=== PATIENT | male | born 1985 | race Caucasian/White ===

== ENCOUNTER 2016-09-11 15:25 | Emergency (ER) | payer OTHER ==
[~2016-09-11] VITALS: Ht 177.8 cm; Wt 74.8 kg
[2016-09-11 17:33] LABS: BASOPHILS % (AUTO) 1.1 % (0.0-2.0); EOSINOPHILS % (AUTO) 0.4 % (0.0-3.0); LYMPHOCYTES % (AUTO) 37.8 % (20.0-45.0); MEAN CORPUSCULAR HEMOGLOBIN 32.4 PG (27.0-31.0); MEAN CORPUSCULAR HGB CONC 38.2 G/DL (32.0-36.0); MEAN CORPUSCULAR VOLUME 85 FL (80-99); MEAN PLATELET VOLUME 6.7 FL (6.5-10.1); NEUTROPHILS % (AUTO) 50.7 % (45.0-75.0); PLATELET COUNT 283 K/UL (150-450); RED BLOOD COUNT 5.61 M/UL (4.70-6.10); RED CELL DISTRIBUTION WIDTH 12.2 % (11.6-14.8); WHITE BLOOD COUNT 6.8 K/UL (4.8-10.8)
[2016-09-11 17:48] LABS: ACETAMINOPHEN < 10 ug/mL (10-30); ALANINE AMINOTRANSFERASE 61 U/L (3-41); ALBUMIN/GLOBULIN RATIO 1.1 (1.0-2.7); ALCOHOL < 10 mg/dL; ANION GAP 15 (5-15); ASPARTATE AMINO TRANSFERASE 54 U/L (5-40); CALCIUM 9.5 mg/dL (8.6-10.2); CARBON DIOXIDE 26 mEQ/L (20-30); CHLORIDE 98 mEQ/L (98-107); GLOMERULAR FILTRATION RATE > 60 mL/min (>60); HEMOLYSIS 13; POTASSIUM 3.5 mEQ/L (3.4-4.9); SODIUM 139 mEQ/L (135-145)
[2016-09-11 18:27] VITALS: BP 142/96
--- NOTE | 2016-09-11 19:03 | Emergency Room Report ---
History of Present Illness General Chief Complaint: Behavioral Complaint Source: EMS Present Illness HPI 31 y/o male [place] police in custody for 5150 for hurting himself. States that this morning the patient had finished using meth with his female partner and was "cuddling" with each other when he decided to get cigarette while she was sleeping as they had both been up for the past 3 days w/o rest due to smoking meth. States that when he came back, his partner was upset he had left her by herself in the street. States he had a can of marijuana that went missing and got upset. The patient then began cutting himself on his left forearm with a plastic razor blade and the partner called the resp ther believing the patient was trying to harm himself. The patient states that he is a cutter and has been since he was 7 years old stating he would cut himself to get his mothers attention as she would always be concerned he had been injured. Patient states he is not suicidal but was very emotional and did not know any other way to express himself to his partner and did not try to intentionally cut a vein or artery stating his cuts were only very superficial. Denies any SI, HI, AH or VH. Allergies: Coded Allergies: No Known Allergies (Unverified , 09/11/16) Patient History Past Medical History: see triage record Past Surgical History: unable to obtain Pertinent Family History: unable to obtain Social History: Reports: alcohol use, drug use, smoking Reviewed Nursing Documentation: PMH: Agreed, PSxH: Agreed Nursing Documentation-PMH Hx Hypertension: Yes History Of Psychiatric Problem: Yes Review of Systems All Other Systems: negative except mentioned in HPI Physical Exam Vital Signs Date Time Temp Pulse Resp B/P Pulse Ox O2 Delivery O2 Flow Rate FiO2 09/11/16 15:22 96.4 121 16 142/96 98 Room Air Sp02 EP Interpretation: reviewed, normal General Appearance: no apparent distress, alert, GCS 15, non-toxic Head: normocephalic, atraumatic Eyes: bilateral eye PERRL, bilateral eye normal inspection ENT: normal ENT inspection Respiratory: chest non-tender, lungs clear, normal breath sounds, speaking full sentences Cardiovascular #1: regular rate, rhythm, no edema Musculoskeletal: back normal, gait/station normal, normal range of motion Neurologic: alert, oriented x3, responsive, motor strength/tone normal, sensory intact, speech normal Psychiatric: judgement/insight normal, memory normal, no suicidal/homicidal ideation, anxious, other - tearful / labile Suicide Risk Assessment: Suicidal Ideation: No Had intent to initiate attempt: No Pt's plan for suicide attempt: No Has means to complete attempt: No Skin: normal color, no rash, warm/dry, well hydrated, laceration - multiple very superficial lacerations / abrasions on left forearms Medical Decision Making PA Attestation Dr. Armenta is my supervising physician with whom patient management has been discussed with. Diagnostic Impression: Primary Impression: Behavioral disorder Additional Impressions: Deliberate self-cutting Methamphetamine dependence Methamphetamine use Substance abuse ER Course Pt. presents to the ED c/o 5150 hold for cutting himself Ddx considered but are not limited to suicide attempt, drug use, depression, schizophrenia, anxiety Vital signs: are WNL, pt. is afebrile H&PE are most consistent with cutting with drug use ORDERS: CBC, CMP, Tox Screen, Meal Tray ED INTERVENTIONS: PET team. DISCHARGE: Patient eloped prior to PET eval and medical clearance. There was no sitter and police did not provide any resource to enforce 5150. Last Vital Signs Date Time Temp Pulse Resp B/P Pulse Ox O2 Delivery O2 Flow Rate FiO2 09/11/16 15:22 96.4 121 16 142/96 98 Room Air Disposition: ELOPED Referrals: [facility],REFERRING (PCP) ROMEO MORRELL Sep 11, 2016 19:03
== END 2016-09-11 18:27 | disposition left against medical advice (07) ==
LOC: EDBD 15:25 → EMR 15:58
DX: F91.9 Conduct disorder, unspecified (principal); S51.812A Laceration without foreign body of left forearm, initial encounter; X78.8XXA Intentional self-harm by other sharp object, initial encounter; Y93.9 Activity, unspecified; Y92.9 Unspecified place or not applicable; F15.20 Other stimulant dependence, uncomplicated; F19.10 Other psychoactive substance abuse, uncomplicated; F17.200 Nicotine dependence, unspecified, uncomplicated; I10 Essential (primary) hypertension; Z86.59 Personal history of other mental and behavioral disorders; Z91.5 Personal history of self-harm
CPT/HCPCS: 36415; 80053; 80300; 80329; 85025; 99284

== ENCOUNTER 2016-09-11 20:26 | Emergency (ER) | payer OTHER ==
[~2016-09-11] VITALS: Ht 167.6 cm; Wt 63.5 kg
[2016-09-11 20:35] VITALS: BP 122/87
--- NOTE | 2016-09-11 20:42 | Emergency Room Report ---
History of Present Illness General Chief Complaint: Psychiatric complaint Source: Patient Present Illness HPI Patient is a 31-year-old male who presented after recently eloping from the hospital. Patient prior history of 5150 hold being placed by [employer]. The patient was the return to us by [employer]. Patient was noted be recently using methamphetamine. The history is limited by patient's agitation. Allergies: Coded Allergies: No Known Allergies (Unverified , 09/11/16) Patient History Past Medical History: see triage record Reviewed Nursing Documentation: PMH: Agreed, PSxH: Agreed Nursing Documentation-PMH Hx Hypertension: Yes Review of Systems All Other Systems: negative except mentioned in HPI Physical Exam Sp02 EP Interpretation: reviewed, normal General Appearance: alert/responsive, no apparent distress, GCS 15, non-toxic Head: atraumatic Eyes: PERRL, lids + conjunctiva normal ENT: hearing intact, no angioedema Neck: supple/symm/no masses, no meningismus Respiratory: effort normal, no wheezing, chest symmetrical Cardiovascular: regular rate, rhythm, no edema Cardiovascular #2: 2+ carotid (R), 2+ carotid (L), 2+ dorsalis pedis (R), 2+ dorsalis pedis (L) Gastrointestinal: non-tender, no mass, non-distended, no rebound/guarding, normal bowel sounds Musculoskeletal: gait & station normal, strength & tone normal, normal ROM, non -tender Neurologic: oriented x3, sensory intact, normal speech Psychiatric: memory normal, anxious Skin: no rash, well hydrated Lymphatic: normal inspection Medical Decision Making Diagnostic Impression: Primary Impression: Psychosis Additional Impression: Substance abuse ER Course Patient presented for agitation. Differential diagnoses include substance abuse , psychosis, bipolar disorder, depression, malingering. Patient laboratory testing done on prior visit. Urine drug screen was noted to be positive for amphetamine. The patient on a 5150 hold. The patient will be transferred to a psychiatric facility for further psychiatric management. Labs Test 09/11/16 21:00 Urine Opiates Screen Negative (NEGATIVE) Urine Barbiturates Screen Negative (NEGATIVE) Phencyclidine (PCP) Screen Negative (NEGATIVE) Urine Amphetamines Screen Positive (NEGATIVE) Urine Benzodiazepines Screen Negative (NEGATIVE) Urine Cocaine Screen Negative (NEGATIVE) Urine Marijuana (THC) Screen Negative (NEGATIVE) Status: unchanged Disposition: XFER TO PSYCH HOSP/UNIT Condition: Serious Raghu Montes Sep 11, 2016 20:42
[2016-09-11] MEDS ORDERED: LORazepam Inj 2mg/ml 1ml IM ONE (20:45)
[2016-09-11 23:00] VITALS: BP 118/86
[2016-09-12 01:30] VITALS: BP 125/79
[2016-09-12 03:25] VITALS: BP 128/80
[2016-09-12 05:00] VITALS: BP 112/79
[2016-09-12 06:30] VITALS: BP 107/73
[2016-09-12 11:00] VITALS: BP 130/80
[2016-09-12 11:15] VITALS: BP 130/90
--- NOTE | 2016-09-13 05:00 | Consultation ---
DATE OF CONSULTATION: 09/12/2016 HISTORY OF PRESENT ILLNESS: The patient is a 31-year-old male with a history of crystal meth abuse, HIV, and noncompliant with medications, who has been admitted on 5150 hold after his girlfriend, who was 19-year-old, called 911. She stated that the patient has been cutting himself all over his body. When I saw the patient, he has superficial cuts on his left arm and apparently he was high and he was with his girlfriend. They were and hanging out. Apparently, he has been bingeing on crystal meth and being awake for 3 days. He became agitated and decided to cut self. During the evaluation, the patient did not endorse any symptoms consistent with depression, psychosis, or wiliam. He was calm and cooperative. He stated that when the cutting happened, he was high and was upset as his girlfriend was upset by him since he left her by herself in the street and went to buy cigarettes. The patient stated that he has been trying to be more responsible and wants to go back to [place] to take care of his mother. He is currently on parole for using and selling crystal meth. He is going to contact the parole officers and would make attempts to go back to his hometown. He also stated that he is being careful with his girlfriend not to contract HIV. He has not been taking his heart medication and has not been seeing his HIV doctor. PAST PSYCHIATRIC HISTORY: He stated that he has had several psychiatric hospitalization which was more so in the context of crystal meth use. PAST MEDICAL HISTORY: Significant for HIV. ALLERGIES: No known drug allergies. SUBSTANCE ABUSE HISTORY: Significant for crystal meth and marijuana. MENTAL STATUS EXAMINATION: The patient is alert and oriented x4. Mood is neutral. Affect is constricted. Congruent mood. Thought process is linear. Thought content, no suicidal or homicidal ideation. No psychotic symptoms. Cognition is intact. Insight and judgment is fair. ASSESSMENT: AXIS I Crystal methamphetamine dependence. AXIS II Deferred. AXIS III As above. AXIS IV Low axis. AXIS V Global assessment of functioning is 50. PLAN: 1. Patient's 5150 will be discontinued. He is not an imminent danger to self or others. He will be discharged with a followup plan with a psychiatrist as well as followup plan with his HIV medications. 2. We will continue to follow and readjust the medication. Philip Fairbanks M.D. DR: Yennifer JOB#: [id number] CC: ANGELO
== END 2016-09-12 01:15 ==
LOC: EMR 20:44
DX: F23 Brief psychotic disorder (principal); F19.10 Other psychoactive substance abuse, uncomplicated; I10 Essential (primary) hypertension
CPT/HCPCS: 80300; 96372; 99284

== ENCOUNTER 2016-10-17 20:58 | Emergency (ER) | payer OTHER ==
[~2016-10-17] VITALS: Ht 175.3 cm; Wt 65.8 kg
[2016-10-17 21:00] VITALS: BP 137/93
--- NOTE | 2016-10-17 21:07 | Emergency Room Report ---
History of Present Illness General Chief Complaint: Medical Clearance Source: Patient Present Illness HPI Patient is a 31-year-old male presented for medical clearance and [employer] custody. The patient was noted to have some abrasions to his face which the was noted to be present. The patient stated that he had a functional heart murmur and was having some difficulty breathing. Patient denied any recent tetanus vaccine. He had not been vomiting. Allergies: Coded Allergies: CODEINE (Unverified Allergy, Unknown, 10/17/16) Patient History Past Medical History: see triage record Reviewed Nursing Documentation: PMH: Agreed, PSxH: Agreed Nursing Documentation-PM Past Medical History: No History, Except For Hx Hypertension: Yes Review of Systems All Other Systems: negative except mentioned in HPI Physical Exam Vital Signs Date Time Temp Pulse Resp B/P Pulse Ox O2 Delivery O2 Flow Rate FiO2 10/17/16 20:49 97.9 99 16 137/93 97 Room Air General Appearance: well appearing, no apparent distress, alert, GCS 15 Head: normocephalic, atraumatic ENT: hearing grossly normal, normal voice Neck: full range of motion, supple Respiratory: lungs clear, normal breath sounds, no respiratory distress, speaking full sentences Cardiovascular #1: normal peripheral pulses, regular rate, rhythm, no edema, no gallop Gastrointestinal: normal inspection, normal bowel sounds, non tender, soft Musculoskeletal: back normal, no calf tenderness Neurologic: normal inspection, alert, oriented x3, responsive, 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 Differential included but was not limited to anemia, pneumonia, pneumothorax, myocardial infarction, pericardial effusion, congestive heart failure, acidosis. Patient's benign exam and does not appear to require any further imaging or laboratory testing at this time. The patient was given a tetanus vaccine. The patient has normal oxygen saturation and does not appear to have any have respiratory difficulty this time. The patient is advised to follow up with primary care doctor in 1-2 days. Patient is advised to return if any worsening condition or if any changes in status that are concerning.The patient was medically cleared for custody. Last Vital Signs Date Time Temp Pulse Resp B/P Pulse Ox O2 Delivery O2 Flow Rate FiO2 10/17/16 20:49 97.9 99 16 137/93 97 Room Air Status: improved Disposition: D/C TO LAW ENFORCEMENT IN CUST Condition: Stable Raghu Montes Oct 17, 2016 21:07
[2016-10-17] MEDS ORDERED: BACITRACIN ZIN1 EACH TOPIC (21:08)
[2016-10-17] MEDS ORDERED: Tetanus/Diptheria/Pertussis Vaccine 0.5ml Syr IM ONE (21:15)
[2016-10-17] MEDS ORDERED: Bacitracin Oint UD TOPIC ONE (21:15)
[2016-10-17 21:30] VITALS: BP 137/93
== END 2016-10-17 21:30 | disposition home or self-care (01) ==
LOC: EDBD 20:58 → EMR 21:05
DX: S00.81XA Abrasion of other part of head, initial encounter (principal); Z23 Encounter for immunization; R01.1 Cardiac murmur, unspecified; I10 Essential (primary) hypertension; Z88.6 Allergy status to analgesic agent; T30.0 Burn of unspecified body region, unspecified degree; Z02.89 Encounter for other administrative examinations; X58.XXXA Exposure to other specified factors, initial encounter; Y92.9 Unspecified place or not applicable
CPT/HCPCS: 90471; 90715; 96372; 99283